=== PATIENT | male | born 1995 | race African-American/Black ===

== ENCOUNTER → 2016-12-04 | Outpatient (CLI) | payer OTHER ==
[2016-12-06 07:44] LABS: FOLLICLE STIMULATING HORMONE 1.2 mIU/mL (1.5-12.4); LUTEINIZING HORMONE 4.1 mIU/mL (1.7-8.6)
[2016-12-06 09:18] LABS: PROLACTIN 8.2 ng/mL (4.0-15.2)
== END ==
LOC: OD 15:06
PROVIDERS: ATTEND Urology
DX: N46.9 Male infertility, unspecified (principal)
CPT/HCPCS: 36415; 83001; 83002; 84146; 84403